=== PATIENT | female | born 1935 | race Caucasian/White ===

== ENCOUNTER 2016-10-16 03:22 | Emergency (ER) | payer OTHER ==
[~2016-10-16] VITALS: Ht 162.6 cm; Wt 78.0 kg
[~2016-10-16 03:22] MED LIST: ACET325 PO; CARD120C4 PO; FURO20 PO; GLIP10TA13 PO; LANO0.1212 PO; LISI-360 PO; LORTA5 PO; MACR100C PO; METO100T PO; SIMV20 PO; WARF-20 PO; WARF3TAB PO
[2016-10-16 03:26] VITALS: BP 162/83; PULSE 111; RESP 22; TEMP 97.4; O2SAT 99
[2016-10-16 03:32] VITALS: BP 170/80; PULSE 116; RESP 29; TEMP 97.9; O2SAT 95
[2016-10-16] MEDS ORDERED: METO100T PO (03:38)
[2016-10-16] MEDS ORDERED: DIGO0.12 PO ×2 (03:38→05:15)
[2016-10-16] MEDS ORDERED: FURO20TA PO (03:38)
[2016-10-16] MEDS ORDERED: LISI-515 PO (03:39)
[2016-10-16] MEDS ORDERED: WARF-58 PO (03:39)
[2016-10-16] MEDS ORDERED: GLIP10TA6 PO (03:39)
[2016-10-16] MEDS ORDERED: GLIP10TA67 PO (03:40)
[2016-10-16] MEDS ORDERED: LANTINJ SQ (03:40)
[2016-10-16] MEDS ORDERED: SIMV10TA PO (03:40)
[2016-10-16 04:04] VITALS: O2SAT 98
[2016-10-16 04:11] VITALS: BP_SYST 181; BP_SYST 184; BP_DIAS 67; BP_DIAS 81; PULSE 101; RESP 28; O2SAT 98
--- NOTE | 2016-10-16 04:13 | PD ---
HPI Chief Complaint: Respiratory Symptoms Time Seen by Provider: 03:31 Travel History International Travel<30 days: No Contact w/Intl Traveler<30days: No Traveled to known affect area: No History of Present Illness HPI This is an 81-year-old female who presents to the emergency department having had an episode of palpitations and shortness of breath that kept her from sleeping last night. She says when she went to lay down and she was feeling short of breath and it worsened throughout the night, feeling like she couldn't catch her breath. She got increasingly anxious and came to the emergency department. She denies any associated chest pain. She has no fevers and chills. Currently she feels improved but still feels a little short of breath. She has a history of atrial fibrillation for which she is on metoprolol and his oxygen. She says in December very similar episode occurred at that time she was told she had a urinary tract infection. She takes Coumadin for history of pulmonary embolism. PFSH Past Medical History Hx Anticoagulant Therapy: Yes (COUMADIN) Asthma: No Atrial Fibrillation: Yes Blood Disorders: No Anxiety: No Depression: No Heart Rhythm Problems: Yes (ARHYTHMIAS, AFIB ) Cancer: No Cardiovascular Problems: Yes (a fib) High Cholesterol: Yes Chemotherapy: No Chest Pain: Yes (NOT SO MUCH ) Congestive Heart Failure: No COPD: No Diabetes: Yes (TYPE II DIABETES, TAKES ORAL MEDS AT HOME) Patient Takes Glucophage: No Diminished Hearing: No Endocrine: Yes Gastrointestinal Disorders: Yes (POLYPS) Genitourinary: No Hypertension: Yes Immune Disorder: No Musculoskeletal: No Neurologic: No Psychiatric: No Reproductive: No Respiratory: Yes (PE 15 YR AGO. ON COUMADIN SINCE) Radiation Therapy: No Sleep Apnea: No Thyroid Disease: No Tetanus Vaccination: Unknown Menopausal: Yes : 8 Para: 8 Past Surgical History Abdominal Surgery: Yes (colon resection ) Cholecystectomy: Yes Gynecologic Surgery: Yes (HYSTERECTOMY) Hysterectomy: Yes Other Surgery: Yes Social History Alcohol Use: No Tobacco Use: No Substance Use: No Allergies-Medications (Allergen,Severity, Reaction): Coded Allergies: No Known Allergies (Unverified , 11/08/13) Reported Meds & Prescriptions Reported Meds & Active Scripts Active Reported Lantus Solostar Pen Inj (Insulin Glargine) 300 Unit/3 Ml Pen 10 Units SQ Simvastatin 10 Mg Tab 10 Mg PO DAILY Glipizide XL (Glipizide) 10 Mg Francisco 10 Mg PO DAILY Take with breakfast or first main meal of the day Lisinopril 20 Mg Tab 20 Mg PO DAILY Warfarin 3 Mg Tab 3 Mg PO DAILY Digoxin 0.125 Mg Tab 0.125 Mg PO DAILY Furosemide 20 Mg Tab 20 Mg PO DAILY Metoprolol Tartrate 100 Mg Tab 100 Mg PO BID Review of Systems Except as stated in HPI: all other systems reviewed are Neg Physical Exam Narrative GENERAL: Frail elderly female in no acute distress. SKIN: Warm and dry. HEAD: Atraumatic. Normocephalic. EYES: Pupils equal and round. No injection or drainage. ENT: Moist mucous membranes NECK: Trachea midline. CARDIOVASCULAR: Irregularly irregular. No murmur appreciated. 2+ bilateral pitting lower extremity edema. RESPIRATORY: Rales in the left lung base. Breath sounds equal bilaterally. GASTROINTESTINAL: Abdomen soft, non-tender, nondistended. MUSCULOSKELETAL: No obvious deformities. NEUROLOGICAL: Awake and alert. No obvious cranial nerve deficits. Moving all extremities. PSYCHIATRIC: Appropriate mood and affect; insight and judgment normal. Data Data Last Documented VS Vital Signs Date Time Temp Pulse Resp B/P Pulse Ox O2 Delivery O2 Flow Rate FiO2 10/16/16 04:11 101 28 184/67 98 Nasal Cannula 2 181/81 10/16/16 03:32 97.9 Orders Electrocardiogram (10/16/16 04:02) B-Type Natriuretic Peptide (10/16/16 04:02) Complete Blood Count With Diff (10/16/16 04:02) Comprehensive Metabolic Panel (10/16/16 04:02) D-Dimer (10/16/16 04:02) Prothrombin Time / Inr (Pt) (10/16/16 04:02) Act Partial Throm Time (Ptt) (10/16/16 04:02) Troponin I (10/16/16 04:02) Chest, Single Ap (10/16/16 04:02) Ecg Monitoring (10/16/16 04:02) Bilateral Bp Monitoring (10/16/16 04:02) Iv Access Insert/Monitor (10/16/16 04:02) Oximetry (10/16/16 04:02) Oxygen Administration (10/16/16 04:02) Sodium Chloride 0.9% Flush (Ns Flush) (10/16/16 04:15) Urinalysis - C+S If Indicated (10/16/16 04:02) Cath For Specimen (10/16/16 04:02) Digoxin (10/16/16 04:02) Urine Culture (10/16/16 04:10) Labs Laboratory Tests Test 10/16/16 04:10 White Blood Count 9.5 TH/MM3 Red Blood Count 4.57 MIL/MM3 Hemoglobin 12.6 GM/DL Hematocrit 38.4 % Mean Corpuscular Volume 83.9 FL Mean Corpuscular Hemoglobin 27.5 PG Mean Corpuscular Hemoglobin 32.7 % Concent Red Cell Distribution Width 15.7 % Platelet Count 179 TH/MM3 Mean Platelet Volume 9.6 FL Neutrophils (%) (Auto) 49.5 % Lymphocytes (%) (Auto) 40.5 % Monocytes (%) (Auto) 7.8 % Eosinophils (%) (Auto) 1.4 % Basophils (%) (Auto) 0.8 % Neutrophils # (Auto) 4.7 TH/MM3 Lymphocytes # (Auto) 3.8 TH/MM3 Monocytes # (Auto) 0.7 TH/MM3 Eosinophils # (Auto) 0.1 TH/MM3 Basophils # (Auto) 0.1 TH/MM3 CBC Comment DIFF FINAL Differential Comment Prothrombin Time 36.8 SEC Prothromb Time International 3.2 RATIO Ratio Activated Partial 31.6 SEC Thromboplast Time D-Dimer Quantitative (PE/DVT) 0.70 MG/L FEU Urine Color YELLOW Urine Turbidity CLEAR Urine pH 5.0 Urine Specific [place] 1.021 Urine Protein TRACE mg/dL Urine Glucose (UA) NEG mg/dL Urine Ketones NEG mg/dL Urine Occult Blood SMALL Urine Nitrite NEG Urine Bilirubin NEG Urine Urobilinogen 2.0 MG/DL Urine Leukocyte Esterase NEG Urine RBC 2 /hpf Urine WBC 1 /hpf Urine Squamous Epithelial <1 /hpf Cells Urine Renal Epithelial Cells <1 /hpf Urine Bacteria RARE /hpf Urine Hyaline Casts 6 /lpf Urine Mucus FEW /lpf Microscopic Urinalysis Comment CATH-CULTURE IND Sodium Level 141 MEQ/L Potassium Level 4.4 MEQ/L Chloride Level 107 MEQ/L Carbon Dioxide Level 23.4 MEQ/L Anion Gap 11 MEQ/L Blood Urea Nitrogen 27 MG/DL Creatinine 1.97 MG/DL Estimat Glomerular Filtration 24 ML/MIN Rate Random Glucose 134 MG/DL Calcium Level 8.8 MG/DL Total Bilirubin 0.8 MG/DL Aspartate Amino Transf 17 U/L (AST/SGOT) Alanine Aminotransferase 17 U/L (ALT/SGPT) Alkaline Phosphatase 80 U/L Troponin I LESS THAN 0.02 NG/ML B-Type Natriuretic Peptide 399 PG/ML Total Protein 7.6 GM/DL Albumin 3.7 GM/DL Digoxin Level LESS THAN 0.1 NG/ML MDM Medical Decision Making Medical Screen Exam Complete: Yes Emergency Medical Condition: Yes Interpretation(s) tachycardic, hypertensive no leukocytosis renal insufficiency consistent with prior troponin .02 bnp 399 Last 24 hours Impressions Chest X-Ray 10/16/16 0402 Signed Impressions: Service Date/Time: Sunday, October 16, 2016 04:23 - CONCLUSION: Left lower lobe airspace disease and effusion. Clayton Montesinos MD Differential Diagnosis Atrial fibrillation with RVR, pulmonary edema, congestive heart failure, pleural effusion, pneumonia or pulmonary embolism Narrative Course This is an 81-year-old female who presents to the emergency department with increasing shortness of breath that started last evening. She has a history of atrial fibrillation. She was placed on a monitor and an IV was established. Labs were obtained which were consistent with prior with a BNP of 399. Digoxin level was subtherapeutic. I suspect the patient hasn't been taking digoxin. It was likely a mistake by either her pharmacy or her when she was organizing her medications. Here in the emergency Department she's been hovering between the 90s and 110s. I suspect her shortness of breath overnight was due to some poor rate control as well as some pulmonary edema. Her chest x-ray demonstrates some left lower lung space disease which I suspect is pulmonary edema. I don't suspect an infection as she is afebrile and has no white count. d-dimer was elevated but not above age adjusted cutoff, and the patient's inr is therapeutic. Patient will be given a loading dose of digoxin and restarted on digoxin as well as given a dose of IV furosemide here in the emergency department. She was urged to follow up with her host/hostess as soon as possible. Diagnosis Primary Impression: Atrial fibrillation with RVR Patient Instructions: General Instructions Additional Instructions: If you develop severe chest pain, shortness of breath, sweating, lightheadedness , dizziness or difficulty breathing return to the emergency department immediately. Followup with your primary care physician in 2-3 days if your symptoms are not resolved. Med/Other Pt SpecificInfo: Existing Med Changed (digoxin is restarted) Scripts Digoxin 0.125 Mg Tab0.125 Mg PO DAILY #30 TAB Ref 0 Prov:Paulette Baron MD 10/16/16 Disposition: 01 DISCHARGE HOME Condition: Stable Paulette Baron MD Oct 16, 2016 04:13
[2016-10-16] MEDS ORDERED: SODIUM CHLORIDE 0.9% FLUSH 5 ML FLUSH IVF PRN (04:15)
[2016-10-16 04:18] LABS: AUTOMATED NEUTROPHIL # 4.7 TH/MM3 (1.8-7.7); BASOPHIL # 0.1 TH/MM3 (0-0.2); BASOPHIL % 0.8 % (0.0-2.0); EOSINOPHIL # 0.1 TH/MM3 (0-0.4); EOSINOPHIL % 1.4 % (0.0-4.0); HEMATOCRIT 38.4 % (35.0-46.0); HEMO FLAGS DIFF FINAL; LYMPH % 40.5 % (9.0-44.0); LYMPHOCYTE # 3.8 TH/MM3 (1.0-4.8); MEAN CELL VOLUME 83.9 FL (80.0-100.0); MEAN CORPUSCULAR HEMOGLOBIN 27.5 PG (27.0-34.0); MEAN CORPUSCULAR HGB CONC 32.7 % (32.0-36.0); MONO % 7.8 % (0.0-8.0); NEUT % 49.5 % (16.0-70.0); PLATELET COUNT 179 TH/MM3 (150-450); RED BLOOD COUNT 4.57 MIL/MM3 (4.00-5.30); RED CELL DISTRIBUTION WIDTH 15.7 % (11.6-17.2); WHITE BLOOD COUNT 9.5 TH/MM3 (4.0-11.0)
[2016-10-16 04:32] LABS: BACTERIA, URINE RARE /hpf; BLOOD, URINE SMALL (NEG); COMMENT (UR) CATH-CULTURE IND; CULTURE IF INDICATED CATH CULTURE IND; GLUCOSE,URINE NEG (NEG); HYALINE CAST, URINE 6 /lpf (RARE); KETONE, URINE NEG (NEG); MUCUS URINE FEW /lpf (OCC); NITRITE,URINE NEG (NEG); RENAL EPITHELIAL CELLS <1 /hpf; SQUAMOUS EPITHELIAL CELL URINE <1 /hpf (0-5); URINE COLOR YELLOW (YELLW/STRAW)
--- NOTE | 2016-10-16 04:33 | RADRPT ---
EXAM DATE/TIME: 10/16/2016 04:23 [facility] COMPARISON: CHEST SINGLE AP, January 08, 2016, 10:57. INDICATIONS : Pt has been short of breath since yesterday. MEDICAL HISTORY : Hypertension. Hypercholesterolemia. Diabetes mellitus type II. A-fib, Arrythmia, History of PE SURGICAL HISTORY : Hysterectomy. Cholecystectomy. Colon resection ENCOUNTER: Initial ACUITY: 1 day PAIN SCORE: 7/10 LOCATION: Bilateral chest FINDINGS: There is consolidation in the left lower lobe and a small left effusion. Right lung is clear. Degener ative changes of the spine. CONCLUSION: Left lower lobe airspace disease and effusion. Clayton Montesinos MD on October 16, 2016 at 4:31 Board Certified Radiologist. This report was verified electronically.
[2016-10-16 04:39] LABS: APTT (PATIENT) 31.6 SEC (24.3-30.1); INTERNATIONAL NORMALIZED RATIO 3.2 RATIO; PROTHROMBIN TIME - PATIENT 36.8 SEC (9.8-11.6)
[2016-10-16 04:50] LABS: ALT (GPT) 17 U/L (10-53); ANION GAP 11 MEQ/L (5-15); AST (GOT) 17 U/L (15-37); BICARBONATE 23.4 MEQ/L (21.0-32.0); BLOOD UREA NITROGEN 27 MG/DL (7-18); CHLORIDE 107 MEQ/L (98-107); GLOMERULAR FILTRATION RATE 24 ML/MIN (>89); POTASSIUM 4.4 MEQ/L (3.5-5.1); SODIUM (NA) 141 MEQ/L (136-145)
[2016-10-16 05:02] LABS: ALKALINE PHOSPHATASE 80 U/L (45-117); DIGOXIN LESS THAN 0.1 NG/ML (0.8-2.0); TOTAL BILIRUBIN ADULT 0.8 MG/DL (0.2-1.0)
[2016-10-16] MEDS ORDERED: DIGOXIN 0.5 MG/2 ML VIAL IV PUSH ONE (05:30)
[2016-10-16] MEDS ORDERED: FUROSEMIDE 40 MG/4 ML VIAL IV PUSH ONE (05:30)
--- NOTE | 2016-10-16 16:19 | EKG ---
Date Performed: 10/16/2016 Time Performed: 03:34:01 PTAGE: 81 years EKG: ATRIAL FIBRILLATION WITH RAPID VENTRICULAR RESPONSE INFERIOR MYOCARDIAL INFARCTION MODERATE T-WAVE ABNORMALITY, CONSIDER LATERAL ISCHEMIA ABNORMAL ECG PREVIOUS TRACING : 01/08/2016 10.29 Compared to prior tracing no significant change DOCTOR: John Pulliam Interpretating Date/Time 10/16/2016 16:17:30
== END 2016-10-16 05:42 | disposition home or self-care (01) ==
LOC: NEPE 03:22
DX: I48.91 Unspecified atrial fibrillation (principal); I10 Essential (primary) hypertension; R94.31 Abnormal electrocardiogram [ECG] [EKG]; E11.9 Type 2 diabetes mellitus without complications; E78.00 Pure hypercholesterolemia, unspecified; Z79.01 Long term (current) use of anticoagulants; Z79.4 Long term (current) use of insulin; Z86.711 Personal history of pulmonary embolism; Z87.19 Personal history of other diseases of the digestive system
CPT/HCPCS: 71010; 80053; 80162; 81001; 83880; 84484; 85025; 85379; 85610; 85730; 87086; 93005; 96374; 96375; 99285; J1160; J1940; P9612